=== PATIENT | male | born 1940 | race Asian ===

== ENCOUNTER → 2017-03-05 | Outpatient (CLI) | payer MEDICARE, OTHER | END | disposition home or self-care (01) | LOC: RADPV 13:25 | PROVIDERS: ATTEND Physician Assistant | DX: M19.032 Primary osteoarthritis, left wrist (principal); M19.031 Primary osteoarthritis, right wrist; M25.832 Other specified joint disorders, left wrist; M25.831 Other specified joint disorders, right wrist; M19.042 Primary osteoarthritis, left hand; M19.041 Primary osteoarthritis, right hand ==